=== PATIENT | female | born 1985 | race Caucasian/White ===

== ENCOUNTER → 2022-07-22 | Emergency (ER) | payer OTHER ==
[~2022-07-22] VITALS: Ht 154.9 cm; Wt 84.1 kg
[~2022-07-22] MED LIST: HYDROcodone-ACET 10/325MG TAB PO ONE; TRAM-297 PO
[2022-07-22 23:14] VITALS: BP 130/79
[2022-07-23 04:57] LABS: Urine Bacteria FEW /hpf (None Seen); Urine Blood 3+ /uL (Negative); Urine Mucus FEW (None Seen); Urine WBC 3 /hpf (0 - 5)
== END | disposition home or self-care (01) ==
LOC: ER 19:33
DX: S16.1XXA Strain of muscle, fascia and tendon at neck level, initial encounter (principal); S96.911A Strain of unspecified muscle and tendon at ankle and foot level, right foot, initial encounter; S70.01XA Contusion of right hip, initial encounter; S09.90XA Unspecified injury of head, initial encounter; F17.210 Nicotine dependence, cigarettes, uncomplicated; Z90.49 Acquired absence of other specified parts of digestive tract; Z79.899 Other long term (current) drug therapy; W18.39XA Other fall on same level, initial encounter; Y93.89 Activity, other specified; Y92.89 Other specified places as the place of occurrence of the external cause; Y99.8 Other external cause status
CPT/HCPCS: 70450; 72125; 73502; 73610; 81001

== ENCOUNTER 2024-08-04 18:48 | Emergency (ER) | payer OTHER ==
[~2024-08-04] VITALS: Ht 165.1 cm; Wt 71.0 kg
[~2024-08-04 18:48] MED LIST changes: -HYDROcodone-ACET 10/325MG TAB PO ONE
--- NOTE | 2024-08-04 19:16 | ECG ---
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
[2024-08-04 20:35] LABS: Basophils # (auto) 0.1 10 ^3/uL (0-0.2); Eosinophils # (auto) 0.1 10 ^3/uL (0-0.8); Hemoglobin 16.4 g/dL (12.2-16.2); Lymphocytes # (auto) 1.9 10 ^3/uL (0.4-5.4); Monocytes # (auto) 0.4 10 ^3/uL (0-1.3); Neutrophils # (auto) 8.4 10 ^3/uL (1.6-8.6); Neutrophils % (auto) 77.6 % (37.0-80.0)
[2024-08-04 20:36] LABS: Basophils % (auto) 0.6 % (0.0-2.0); Eosinophils % (auto) 0.6 % (0.0-7.0); Hematocrit 46.9 % (36.0-46.0); Lymphocytes % (auto) 17.2 % (10.0-50.0); Mean Corpuscular Hemoglobin 30.2 pg (28.0-32.0); Mean Corpuscular Hgb Conc. 34.9 g/dL (32.0-36.0); Mean Corpuscular Volume 86.6 fL (80.0-100.0); Nucleated Red Blood Cells % 0.5 %; Platelet Count (auto) 535 10^3/uL (140-450); Red Blood Cells 5.42 10^6/uL (4.0-5.20); Red Cell Distribution Width 12.9 % (11.8-14.3); White Blood Cell 10.9 10^3/uL (4.4-10.8)
[2024-08-04 20:47] LABS: Anion Gap 9 (5-15); BUN/Creatinine Ratio 10.5 (10.0-20.0); Blood Urea Nitrogen 9 mg/dL (9-23); Carbon Dioxide 22 mmol/L (20-31); Chloride 106 mmol/L (98-107); Potassium 4.8 mmol/L (3.5-5.1); Sodium 137 mmol/L (136-145)
[2024-08-04 20:48] LABS: Total Protein 7.6 g/dL (5.7-8.2)
--- NOTE | 2024-08-04 20:53 | DVH ---
EXAM: XY CHEST XRAY 1 VIEW CLINICAL HISTORY: chest pain TECHNIQUE: Single AP view of the chest WID: COMPARISON: XY CHEST PORTABLE on DOS: 11/04/23 FINDINGS: Lines and tubes: None Chest: The heart size and pulmonary vasculature is within normal limits. No pleural effusion, pneumothorax, or consolidation. Linear scarring in the left lung base. The osseous structures are grossly intact. IMPRESSION: No acute cardiopulmonary abnormality.
[2024-08-04 21:05] VITALS: PULSE 122; RESP 26; O2SAT 98
[2024-08-04 21:06] LABS: Alanine Aminotransferase 1309 U/L (7-40); Albumin 4.9 g/dL (3.2-4.8); Alkaline Phosphatase 298 U/L (46-116); Aspartate Aminotransferase 930 U/L (13-40); Bilirubin, Total 3.2 mg/dL (0.2-1.0); Calcium 10.5 mg/dL (8.7-10.4); Glucose 113 mg/dL (74-106)
[2024-08-04] MEDS: ONDANSETRON HCL 4 MG/2 ML VIAL IV ONE (21:17)
[2024-08-04] MEDS: HYDROmorphone HCL 2 MG/ML VL/or syr IV ONE (21:18)
--- NOTE | 2024-08-04 21:23 | ED.PDOC ---
GI ASSESSMENT HPI Comments 38 year old female brought in by EMS presents to the ED with a chief complaint of epigastric pain onset today. Patient states she had a Cholecystectomy at [place] 2 days ago, was discharged home, was not feeling any pain. Patient woke up today experiencing epigastric pain, nausea, vomiting with blood, hematuria. Denies any past medical history. No other symptoms or modifying factors present at this time. Chief Complaint: Chest Pain Time Seen by MD: 21:08 Primary Care Provider: ROSA Munroe Notes: Medications, Allergies Allergies: Coded Allergies: NO KNOWN ALLERGIES (Unverified , 07/22/22) Home Meds Active Scripts Tramadol Hcl (Ultram) 50 Mg Tab, 1 TAB PO Q6HR, #30 TAB Prov:FRANCOIS TERRELL MD 07/22/22 Information Source: Patient Mode of Arrival: EMS Timing: Days Duration: Since onset Prehospital treatment: None Severity: Moderate Recent: Recent Surgery Recent Hx of: None Pain Location: Epigastric Modifying Factors: Nothing Associated sign and symptoms: Nausea, Vomiting, Hematemesis (hematuria), Abdominal Pain Past Medical History PAST MEDICAL HISTORY: Denies Surgical History: Appendectomy, Cholecystectomy 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 THRU ORDER TAKER 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: Denies all DRIVE THRU ORDER TAKER Hx Family History Family History: Reviewed,noncontributory to illness Social History Smoker: Cigarettes Alcohol: Denies ETOH Use Drugs: Denies Drug Use Lives In: Home Constitutional: denies: chills, diaphoresis, fatigue, fever, malaise, sweats, weakness, others EENTM: denies: blurred vision, double vision, ear bleeding, ear discharge, ear drainage, ear pain, ear ringing, eye pain, eye redness, hearing loss, mouth pain, mouth swelling, nasal discharge, nose bleeding, nose congestion, nose pain, photophobia, tearing, throat pain, throat swelling, voice changes, others Respiratory: denies: cough, hemoptysis, orthopnea, SOB at rest, shortness of breath, SOB with excertion, stridor, wheezing, others Cardiovascular: denies: chest pain, dizzy spells, diaphoresis, Dyspnea on exertion, edema, irregular heart beat, left arm pain, lightheadedness, palpitations, PND, syncope, others Gastrointestinal: reports: abdominal pain, hematemesis, nausea, vomiting; denie s: abdomen distended, blood streaked bowels, constipated, diarrhea, dysphagia, difficulty swallowing, melena, poor appetite, poor fluid intake, rectal bleeding, rectal pain, others Genitourinary: reports: hematuria; denies: abnormal vagina bleeding, burning, dyspareunia, dysuria, flank pain, frequency, incontinence, pain, , vagina discharge, urgency, others Neurological: denies: dizziness, fainting, headache, left sided numbness, left sided weakness, numbness, paresthesia, pre-existing deficit, right sided numbness, right sided weakness, seizure, speech problems, tingling, tremors, weakness, others Musculoskeletal: denies: back pain, gout, joint pain, joint swelling, muscle pain, muscle stiffness, neck pain, others Integumetry: denies: bruises, change in color, change in hair/nails, dryness, laceration, lesions, lumps, rash, wounds, others Allergic/Immunocompromised: denies: Difficulty Healing, Frequent Infections, Hives, Itching, others Hematologic/Lymphatic: denies: anemia, blood clots, easy bleeding, easy bruising, swollen glands, others Endocrine: denies: excessive hunger, excessive sweating, excessive thirst, excessive urination, flushing, intolerance to cold, intolerance to heat, unexplained weight gain, unexplained weight loss, others Psychiatric: denies: anxiety, bipolar disorder, depression, hopeless, panic disorder, schizophrenia, sleepless, suicidal, others All Other Systems: Reviewed and Negative Physical Exam General Appearance: Normal, Severe Distress HEENT: Normal ENT Inspection, Pharynx Normal, TMs Normal Neck: Full Range of Motion, Non-Tender, Normal, Normal Inspection Respiratory: Chest Non-Tender, Lungs Clear, No Accessory Muscle Use, No Respiratory Distress, Normal Breath Sounds Cardiovascular: No Edema, No JVD, No Murmur, No Gallop, Normal Peripheral Pulses, Regular Rate/Rhythm Breast Exam: Deferred Gastrointestinal: Normal Bowel Sounds, Tenderness Genitalia: Deferred Pelvic: Deferred Rectal: Deferred Extremities: No calf tenderness, Normal capillary refill, Normal inspection, Normal range of motion, Non-tender, No pedal edema Musculoskeletal : Apperance: Normal Neurologic: Alert, box press operator II-XII nml as Tested, No Motor Deficits, Normal Affect, Normal Mood, No Sensory Deficits Cerebellar Function: Normal Reflexes: Normal Skin: Dry, Normal Color, Warm Lymphatic: No Adenopathy Was a procedure done? Was a procedure done?: No GI differential Dx Differential Diagnosis: AAA, Appendicitis, Aortic dissection, Bowel Obstruction, Cholangitis, Cholecystitis, Constipation, Esophagitis, Gastritis/PUD, Ischemic Bowel, Other X-Ray, Labs, Meds, VS Vital Signs Date Time Temp Pulse Resp B/P (MAP) Pulse Ox O2 Delivery O2 Flow Rate FiO2 08/04/24 21:48 116 24 112/71 08/04/24 21:18 122 26 108/86 08/04/24 21:05 98.1 122 26 108/86 (93) 98 98.1 08/04/24 21:05 122 26 98 Room Air* 0 21 08/04/24 19:45 97.7 121 20 108/72 (84) 98 97.7 08/04/24 19:04 99.0 120 20 136/93 (107) 98 08/04/24 18:50 118 Lab Test 08/04/24 20:12 Range/Units White Blood Count 10.9 H 4.4-10.8 10^3/uL Red Blood Count 5.42 H 4.0-5.20 10^6/uL Hemoglobin 16.4 H 12.2-16.2 g/dL Hematocrit 46.9 H 36.0-46.0 % Mean Corpuscular Volume 86.6 80.0-100.0 fL Mean Corpuscular Hemoglobin 30.2 28.0-32.0 pg Mean Corpuscular Hemoglobin Concent 34.9 32.0-36.0 g/dL Red Cell Distribution Width 12.9 11.8-14.3 % Platelet Count 535 H 140-450 10^3/uL Mean Platelet Volume 7.2 6.9-10.8 fL Neutrophils (%) (Auto) 77.6 37.0-80.0 % Lymphocytes (%) (Auto) 17.2 10.0-50.0 % Monocytes (%) (Auto) 4.0 0.0-12.0 % Eosinophils (%) (Auto) 0.6 0.0-7.0 % Basophils (%) (Auto) 0.6 0.0-2.0 % Neutrophils # (Auto) 8.4 1.6-8.6 10 ^3/uL Lymphocytes # (Auto) 1.9 0.4-5.4 10 ^3/uL Monocytes # (Auto) 0.4 0-1.3 10 ^3/uL Eosinophils # (Auto) 0.1 0-0.8 10 ^3/uL Basophils # (Auto) 0.1 0-0.2 10 ^3/uL Nucleated Red Blood Cells 0.5 % Sodium Level 137 136-145 mmol/L Potassium Level 4.8 3.5-5.1 mmol/L Chloride Level 106 98-107 mmol/L Carbon Dioxide Level 22 20-31 mmol/L Anion Gap 9 5-15 Blood Urea Nitrogen 9 9-23 mg/dL Creatinine 0.86 0.550-1.02 mg/dL Glomerular Filtration Rate Calc 88 >90 mL/min BUN/Creatinine Ratio 10.5 10.0-20.0 Serum Glucose 113 H 74-106 mg/dL Calcium Level 10.5 H 8.7-10.4 mg/dL Total Bilirubin 3.2 H 0.2-1.0 mg/dL Aspartate Amino Transferase (AST) 930 H 13-40 U/L Alanine Aminotransferase (ALT) 1309 H 7-40 U/L Alkaline Phosphatase 298 H 46-116 U/L Troponin I High Sensitivity < 3 L </=34 ng/L Total Protein 7.6 5.7-8.2 g/dL Albumin 4.9 H 3.2-4.8 g/dL Lipase > 3500 H 12-53 U/L Current Medications Medications (Trade) Dose Ordered Sig/Mahendra Route Start Time Stop Time Status Last Admin Hydromorphone HCl (Dilaudid Injection) 1 mg ONCE ONCE IV 08/04/24 21:15 08/04/24 21:16 DC 08/04/24 21:18 Ondansetron HCl (Zofran) 4 mg ONCE ONCE IV 08/04/24 21:15 08/04/24 21:16 DC 08/04/24 21:17 [place] [id number] Ph: [phone] DIAGNOSTIC IMAGING Diagnostic Imaging Report : [id number] Signed PATIENT: JULITA MARINELLI MACCT: [id number] UNIT: [id number] : 1985 LOC: ER ROOM / BED: / AGE / SEX: 38 / F ADM STATUS: REG ER SERVICE [id number] ORDERING PHYSICIAN: CAROLYN RENO MD PROCEDURE(s): CXR1 - CHEST XRAY 1 VIEW REASON: chest pain ORDER NUMBER(s): [id number], ACCESSION NUMBER(s): [id number] EXAM: XY CHEST XRAY 1 VIEW CLINICAL HISTORY: chest pain TECHNIQUE: Single AP view of the chest WID: COMPARISON: XY CHEST PORTABLE on DOS: 11/04/23 FINDINGS: Lines and tubes: None Chest: The heart size and pulmonary vasculature is within normal limits. No pleural effusion, pneumothorax, or consolidation. Linear scarring in the left lung base. The osseous structures are grossly intact. IMPRESSION: No acute cardiopulmonary abnormality. ATED BY: LACI JAMIL MD DICTATED DATE/TIME: 08/04/242049 SIGNED BY: LACI JAMIL MD SIGNED DATE/TIME: 08/04/242049 CC: [place] [id number] Ph: [phone] DIAGNOSTIC IMAGING Diagnostic Imaging Report : [id number] Signed PATIENT: JULITA MARINELLI MACCT: [id number] UNIT: [id number] : 1985 LOC: ER ROOM / BED: / AGE / SEX: 38 / F ADM STATUS: REG ER SERVICE 10 ORDERING PHYSICIAN: CAROLYN RENO MD PROCEDURE(s): ABPLIV - CT AB PEL WITH IV CON ONLY REASON: severe pain s/p cholecystectomy ORDER NUMBER(s): [id number], ACCESSION NUMBER(s): [id number] Exam: CT CT AB PEL WITH IV CON ONLY History: severe pain s/p cholecystectomy Comparison Study: None available at time of dictation. Contrast: Type of contrast: Omnipaque 300 Contrast injected: 100 mL Contrast wasted: 0 TECHNIQUE: A digital automotive parts counterperson image was obtained. During the uneventful, intraven ous administration of contrast material, multislice data acquisition was obtained through the abdomen and pelvis. The data set was subsequently reconstructed into axial images. Images were reviewed on a work station using a combination of axial and multiplanar using a variety of window levels and settings. Radiation Dose Information: CT Dose: CTDI volume is 17 mGy. Dose-length product is 963.11 mGy*cm FINDINGS: Lung Bases: No acute or significant lung base finding. Normal heart size. No pleural or pericardial effusion. Liver: The liver is normal in size. No focal lesions. Normal hepatic vascular enhancement. CT findings consistent with hepatic steatosis. Gallbladder and Biliary Tree: Not visualized and reportedly removed. There is no fluid in the gallbladder fossa or dilated intrahepatic ducts. Spleen: Unremarkable Pancreas: The pancreas is normal in appearance without focal lesions or abnormal enhancement. Adrenal Glands: Unremarkable Kidneys: Kidneys demonstrate normal symmetric enhancement without focal lesions, calculi or hydronephrosis. Bladder: Unremarkable Bowel: The stomach is grossly normal in appearance. Small bowel and colon are normal in caliber and distribution. The appendix is not visualized; however, no secondary findings of acute appendicitis identified. Ascites: Absent Lymphadenopathy: No mesenteric, retroperitoneal or periportal lymphadenopathy. Abdominal Wall and Mesentery: Unremarkable. Vasculature: The visualized abdominal aorta is normal in size and caliber. Abd ominal and pelvic vessels demonstrate normal enhancement. Pelvic Organs: Mild uterine enlargement with fluid-filled uterine cavity. Musculoskeletal: No aggressive focal bony lesions, acute fractures or dislocation. Soft tissues: Unremarkable. IMPRESSION: 1. No acute abnormality in the abdomen or pelvis. 2. No fluid collections in the gallbladder fossa. 3. No dilated intrahepatic ducts. 4. No free air or free fluid. All CT scans at this medical facility are performed using dose modulation techniques as appropriate to a performed exam including the following: Automated exposure control was utilized; adjustment of the MA and/or KV according to patient size; and use of iterative reconstruction technique. ATED BY: RAJAN BAILON Jr., DO DICTATED DATE/TIME: 08/04/242156 SIGNED BY: RAJAN BAILON Jr., SIGNED DATE/TIME: 08/04/242156 CC: Time of 1ST Reevaluation: 21:38 Reevaluation 1ST: Unchanged Time of 2ND Reevaluation: 23:00 Reevaluation 2ND: Improved Patient Education/Counseling: Diagnosis, Treatment, Prognosis Family Education/Counseling: No Family Present Additional Information I reviewed the following notes from patient's past medical encounters: The following tests were ordered, and results were reviewed by me: TROP, TROP, TROP, CBC, CMP, EKG, XY CHEST 1 VIEW, LIPASE, CT AB PEL WITH IV CON Additional Information was gathered from interviewing the following independent historians: EMS I reviewed and agreed with the following test results read by other providers: XY CHEST 1 VIEW, CT AB PEL WITH IV CON I discussed treatment and results with medical personnel and: patient Departure 1 Departure Time of Disposition: 23:00 (I discussed the case with Ismael, they plan to transfer her for surgery eval and further workup as inpatient . Auth # [id number]) Impression: Primary Impression: Acute pancreatitis Additional Impressions: Transaminitis Recurrent upper abdominal pain with history of cholecystectomy Disposition: 02 SHORT TERM HOSPITAL Condition: Guarded Critical Care Note Critical Care Time?: Yes (35 min-critical care time only) Critical care comment: Total critical care time: Approximately 36 minutes Due to a high probability of clinically significant, life threatening deterioration, the patient required my highest level of preparedness to intervene emergently and I personally spent this critical care time directly and personally managing the patient. This critical care time included obtaining a history; examining the patient; pulse oximetry; ordering and review of studies; arranging urgent treatment with development of a management plan; evaluation of patient's response to treatment; frequent reassessment; and, discussions with other providers. This critical care time was performed to assess and manage the high probability of imminent, life-threatening deterioration that could result in multi-organ failure. It was exclusive of separately billable procedures and treating other patients. Stability Stability form required: No Heart Score Heart Score: Heart Score Response (Comments) Value History Slightly Suspicious 0 EKG Normal 0 Age <45 0 Risk Factors No known risk factors 0 Troponin Normal limit 0 Total 0 I personally scribed for CAROLYN RENO MD ([email or web address]) on 08/04/24 at 21:23. Electronically submitted by aMry Gore ([email or web address]). I personally scribed for CAROLYN RENO MD ([email or web address]) on 08/04/24 at 21:31. Electronically submitted by Mary Gore ([email or web address]). I personally scribed for CAROLYN RENO MD ([email or web address]) on 08/04/24 at 21:33. Electronically submitted by Mary Gore ([email or web address]). I personally scribed for CAROLYN RENO MD ([email or web address]) on 08/04/24 at 22:38. Electronically submitted by Mary Gore ([email or web address]). CAROLYN RENO MD Aug 04, 2024 21:23
--- NOTE | 2024-08-04 21:59 | DVH ---
Exam: CT CT AB PEL WITH IV CON ONLY History: severe pain s/p cholecystectomy Comparison Study: None available at time of dictation. Contrast: Type of contrast: Omnipaque 300 Contrast injected: 100 mL Contrast wasted: 0 TECHNIQUE: A digital spotter driver image was obtained. During the uneventful, intravenous administration of c ontrast material, multislice data acquisition was obtained through the abdomen and pelvis. The data s et was subsequently reconstructed into axial images. Images were reviewed on a work station using a c ombination of axial and multiplanar using a variety of window levels and settings. Radiation Dose Information: CT Dose: CTDI volume is 17 mGy. Dose-length product is 963.11 mGy*cm FINDINGS: Lung Bases: No acute or significant lung base finding. Normal heart size. No pleural or pericardial effusion. Liver: The liver is normal in size. No focal lesions. Normal hepatic vascular enhancement. CT findin gs consistent with hepatic steatosis. Gallbladder and Biliary Tree: Not visualized and reportedly removed. There is no fluid in the gallbl adder fossa or dilated intrahepatic ducts. Spleen: Unremarkable Pancreas: The pancreas is normal in appearance without focal lesions or abnormal enhancement. Adrenal Glands: Unremarkable Kidneys: Kidneys demonstrate normal symmetric enhancement without focal lesions, calculi or hydroneph rosis. Bladder: Unremarkable Bowel: The stomach is grossly normal in appearance. Small bowel and colon are normal in caliber and d istribution. The appendix is not visualized; however, no secondary findings of acute appendicitis id entified. Ascites: Absent Lymphadenopathy: No mesenteric, retroperitoneal or periportal lymphadenopathy. Abdominal Wall and Mesentery: Unremarkable. Vasculature: The visualized abdominal aorta is normal in size and caliber. Abdominal and pelvic vess els demonstrate normal enhancement. Pelvic Organs: Mild uterine enlargement with fluid-filled uterine cavity. Musculoskeletal: No aggressive focal bony lesions, acute fractures or dislocation. Soft tissues: Unremarkable. IMPRESSION: 1. No acute abnormality in the abdomen or pelvis. 2. No fluid collections in the gallbladder fossa. 3. No dilated intrahepatic ducts. 4. No free air or free fluid. All CT scans at this medical facility are performed using dose modulation techniques as appropriate t o a performed exam including the following: Automated exposure control was utilized; adjustment of th e MA and/or KV according to patient size; and use of iterative reconstruction technique.
[2024-08-04] MEDS: IOHEXOL 300 MG/ML 100ML BOTTLE IJ ONE (22:03)
[2024-08-04] MEDS: SODIUM CHLORIDE 0.9% 1,000 ML IV ONE (23:31)
[2024-08-05 00:20] LABS: COVID19 ANTIGEN SOFIA FIA NEGATIVE (NEGATIVE); Rapid Influenza A Negative (Negative); Rapid Influenza B Negative (Negative)
[2024-08-05] MEDS: ONDANSETRON HCL 4 MG/2 ML VIAL IV ONE ×3 (00:43→06:52)
[2024-08-05] MEDS: MORPHINE SULFATE 4 MG/ML SYR/VIAL IV ONE (00:44)
[2024-08-05] MEDS: HYDROmorphone HCL 2 MG/ML VL/or syr IV ONE ×3 (01:50→12:49)
[2024-08-05] MEDS: HYDROmorphone HCL 2 MG/ML VL/or syr IM ONE (06:59)
[2024-08-05 13:45] VITALS: RESP 18; O2SAT 98
[2024-08-05 13:50] VITALS: BP 129/68; PULSE 83; RESP 16; TEMP 97.8; O2SAT 96
== END 2024-08-05 13:50 | disposition short-term general hospital (02) ==
LOC: EDUNIT# 18:48 → EDBD 18:48 → ER 18:48
DX: K85.90 Acute pancreatitis without necrosis or infection, unspecified (principal); F17.210 Nicotine dependence, cigarettes, uncomplicated; R74.01 Elevation of levels of liver transaminase levels; Z20.822 Contact with and (suspected) exposure to COVID-19; Z90.49 Acquired absence of other specified parts of digestive tract
CPT/HCPCS: 36415; 71045; 74177; 80053; 83690; 84484; 84702; 85025; 87426; 87804; 93005; 96361; 96374; 96375; 96376; 99291; J1171; J2405; J7030; Q9967